=== PATIENT | male | born 1995 | race Caucasian/White ===

== ENCOUNTER 2024-02-26 18:33 | Emergency (ER) | payer BC, MEDICAID ==
[~2024-02-26] VITALS: Ht 177.8 cm; Wt 160.0 kg
[2024-02-26 18:41] VITALS: TEMP 98.4
[2024-02-26] MEDS: LIDOcaine 1% 30ml preserv. free vial SQ STA (19:35)
[2024-02-26] MEDS ORDERED: AMOX-580 PO (19:59)
[2024-02-26 20:23] VITALS: BP 128/80; PULSE 86; RESP 14; O2SAT 96
== END 2024-02-26 20:25 | disposition home or self-care (01) ==
LOC: ER 18:34
DX: S61.210A Laceration without foreign body of right index finger without damage to nail, initial encounter (principal); W54.0XXA Bitten by dog, initial encounter; Y93.89 Activity, other specified; Y92.89 Other specified places as the place of occurrence of the external cause; Y99.8 Other external cause status
CPT/HCPCS: 12001; 99283; A6222; A6258